=== PATIENT | male | born 1945 | race Caucasian/White ===

== ENCOUNTER 2023-09-29 09:20 | Emergency (ER) | payer OTHER, SELFPAY ==
[2023-09-29 09:25] VITALS: BP 151/91
--- NOTE | 2023-09-29 10:52 | ED.GENMED ---
History of Present Illness
General
Chief Complaint: Eye Problems
Source: patient
Exam Limitations: none
Time Seen by Provider: 09/29/23 09:48
History of Present Illness
History of Present Illness:
77-year-old male presents with foreign body sensation in left eye since the past 4 to 5 days. He denies any vision change. He denies discomfort or light sensitivity. He states Visine seems to help his symptoms. He does not wear glasses or
contacts. No other complaints at this time
Past History
Past History
ED Past Medical History: Other (History of prostatitis infection with bacteremia, irritable bowel syndrome)
ED Past Surgical History: Other (Tonsillectomy as a child, dislocated profusion)
Social History
Tobacco: Former smoker
Alcohol: Daily (One beer a day)
Personal:
Living: with family
Employment: Employed
Phy Exam
Physical Exam
Physical Exam:
General: Well-appearing male no acute respiratory distress
HEENT: Left eye exam with fluorescein stain and slit lamp. There is no scleral injection. The lids were everted there is no foreign body. Just lateral to the iris overlying the sclera there is a small punctate area of hemorrhage. This could be a
site of a prior foreign body. Anterior chamber is clear pupil is round and reactive
Skin: No erythema or rash
Course
Orders/Labs/Results
Orders:
Orders
09/29/23 10:39
Gentamicin [Genoptic 0.3% Eye Drops] See Dose Instructions OPHTH NOW STA
09/29/23 10:40
Fluorescein Sodium [Ful-Katheryn] 3 mg .ROUTE .STK-MED ONE
09/29/23 10:41
Purified Water Eye Wash [Dacriose Eye Wash Solution] 120 ml .ROUTE .STK-MED ONE
Vital Signs
Initial and Last Documented VS:
Initial Vital Signs
Temp Pulse Resp BP Pulse Ox
98.2 F 67 16 151/91 98
09/29/23 09:25 09/29/23 09:25 09/29/23 09:25 09/29/23 09:25 09/29/23 09:25
Last Documented Vital Signs
Temp Pulse Resp BP Pulse Ox
98.2 F 67 16 151/91 98
09/29/23 09:25 09/29/23 09:25 09/29/23 09:25 09/29/23 09:25 09/29/23 09:25
MDM/Problems Addressed
Differential Diagnosis Includes:
Foreign body sensation left eye. The eye was examined with slit lamp. There is no visible retained foreign body however there is a small area that could be a prior foreign body. Will start on gentamicin drops and recommend follow-up with
ophthalmology
*Critical Care Note
Total Time (30-74mins, 75-104mins- exclusive of procedures): Not Applicable
ED Attending Note
-
Portions of this chart may have been created with voice recognition software.� Occasional wrong word or��sound alike� substitutions may have occurred due to the inherent limitations of voice recognition software.
Discharge Plan
Departure
Patient Disposition: Home (Routine Discharge)
Date of Disposition: 09/29/23
Time of Disposition: 10:55
Patient with high blood pressure during this ER visit?: No
Discharge Problem:
Foreign body sensation, left eye
Instructions: Foreign Body in Eye (DC)
Prescriptions:
No Action
ascorbic acid (vitamin C) 1,000 MG tablet extended release
1,000 mg PO DAILY
lysine 1,000 MG tablet
1,000 mg PO DAILY
omega-3 fatty acids-fish oil [Fish Oil] 1,000 MG capsule
1 cap PO
cholecalciferol (vitamin D3) 2,000 UNIT tablet
2,000 unit PO
zinc ooi-kdezqt-ebx palm-gnsg 1 EACH capsule
2 ea PO DAILY
Multivitamin
1 tab PO DAILY
levofloxacin 500 MG tablet
500 mg PO DAILY Qty: 10 0RF
Referrals:
Rojas Martin MD [Active] -
Celina Rose DO [Family Provider] -
Activity Restrictions/Additional Instructions:
Use 1 drop left eye every 4 hours. Follow-up with eye doctor for further evaluation. Return if worse otherwise
Discharge Date and Time
Print Language: BOTSWANAN
[2023-09-29] MEDS: GENOPTIC 0.3% EYE DROPS 1 DROP OPHTH (10:57)
== END 2023-09-29 11:10 | disposition home or self-care (01) ==
LOC: EMR 09:20
PROVIDERS: EMERGENCY PHYSICIAN Emergency Medicine; FAMILY PHYSICIAN Family Medicine
DX: H57.8A2 Foreign body sensation, left eye (principal); N41.9 Inflammatory disease of prostate, unspecified; K58.9 Irritable bowel syndrome, unspecified; Z87.891 Personal history of nicotine dependence
CPT/HCPCS: 99282

== ENCOUNTER 2023-12-30 16:43 | Emergency (ER) | payer OTHER, SELFPAY ==
[2023-12-30 17:04] VITALS: BP 157/100
[2023-12-30 17:28] LABS: % Basophils 0.6 % (0-2); % Eosinophils 1.9 % (0-6); % Immature Granulocytes 0.3 % (0-0.5); % Lymphocytes 6.2 % (20.5-51.1); % Monocytes 9.6 % (1.7-9.3); % Neutrophils 81.4 % (42.2-75.2); Absolute Basophils 0.1 10^3/uL (0-0.2); Absolute Eosinophils 0.3 10^3/uL (0-0.7); Absolute Lymphocytes 0.8 10^3/uL (1.2-3.4); Absolute Monocytes 1.3 10^3/uL (0.1-0.6); Absolute Neutrophils 10.9 10^3/uL (1.4-6.5); Hematocrit 46.7 % (39.0-52.0); Hemoglobin 16.3 g/dL (13.0-18.0); Mean Corp Hgb Conc. 34.9 g/dL (33.0-37.0); Mean Corpuscular Hgb 29.7 pg (27.0-31.0); Mean Corpuscular Volume 85.1 fL (80.0-94.0); Mean Platelet Volume 10.1 fL (7.4-10.4); Nucleated Red Blood Cells % 0 % (-); Platelet Count 363 10^3/uL (130-400); Red Blood Cell Count 5.49 10^6/uL (4.70-6.10); Red Cell Dist. Width 14.8 % (11.5-14.5); White Blood Cell Count 13.4 10^3/uL (4.8-10.8)
[2023-12-30 17:45] LABS: ALT (SGPT) 28 U/L (0-50); AST (SGOT) 41 U/L (17-59); Albumin 4.5 g/dl (3.5-5.0); Alkaline Phosphatase 54 U/L (38-126); Blood Urea Nitrogen 18 mg/dl (9-20); Calcium 9.7 mg/dl (8.4-10.2); Carbon Dioxide 26 mmol/L (22-30); Chloride 102 mmol/L (98-107); Glucose 116 mg/dl (70-99); Potassium 4.5 mmol/L (3.5-5.1); Sodium 141 mmol/L (135-145); Total Protein 7.4 g/dl (6.3-8.2); eGFR > 60.00
[2023-12-30 17:46] LABS: COVID-19 Antigen Negative (Negative)
[2023-12-30 17:52] LABS: Troponin I < 0.012 ng/ml
[2023-12-30 20:43] VITALS: BP 179/96
[2023-12-30] MEDS: DECADRON 10 MG PO (20:43)
[2023-12-30] MEDS: DUONEB 3 ML INH (20:44)
[2023-12-30 21:09] LABS: D-Dimer 2.41 ug/mlFEU (0.00-0.50)
[2023-12-30 22:37] VITALS: BP 140/82
[2023-12-30 23:00] VITALS: BP 168/94
--- NOTE | 2023-12-30 23:14 | ED.GENMED ---
History of Present Illness
General
Chief Complaint: Cough
Source: patient
Exam Limitations: none
Time Seen by Provider: 12/30/23 19:59
Nursing documentation reviewed up to this point in time: agreed with
History of Present Illness
History of Present Illness:
Patient to ED with complaint of sorethroat and cough. States he flew back from [place] on Friday. His symptoms started friday PM, Brought to ED by spouse for eval
Past History
Past History
ED Past Medical History: COPD, Hypercholesterolemia and Other (History of prostatitis infection with bacteremia, irritable bowel syndrome)
ED Past Surgical History: Other (Tonsillectomy as a child, dislocated profusion)
Social History
Tobacco: Former smoker
Alcohol: Daily (One beer a day)
Personal:
Living: with family
Employment: Employed
Review of Systems
Review of Systems
Allergies reviewed?: Yes
All Other Systems: ROS reviewed and negative except as documented in HPI and ROS
Constitutional: Reports no symptoms
EENT: Reports sore throat
Respiratory: Reports cough
Cardiac: Reports no symptoms
ABD/GI: Reports no symptoms
: Reports no symptoms
Musculoskeletal: Reports no symptoms
Skin: Reports no symptoms
Neurological: Reports no symptoms
Psychiatric: Reports no symptoms
Phy Exam
General Physical Exam
General Presentation: well appearing and no apparent distress
General age: appears stated age
General Skin: warm and dry
General Habitus: normal
General Mental: alert
Cardiovascular Exam
Cardiovascular Exam: regular rate/rhythm and no edema
Pulmonary Exam
Pulmonary Exam: chest non tender and decreased breath sounds
Cough: non productive cough
Gastrointestinal Exam
Gastrointestinal Exam: normal bowel sounds, non tender and soft
Musculoskeletal Exam
Musculoskeletal Exam: full ROM and neuro vasc intact
Skin Exam
Skin Exam: normal color, warm/dry and no rash
Psychiatric Exam
Psychiatric Exam: normal mood/affect
Course
Orders/Labs/Results
Orders:
Orders
12/30/23 17:11
EKG [Electrocardiogram (*1)] Urgent
Reason for Study: Shortness of Breath
EKG- Treatment ONCE
12/30/23 17:17
CXR2 [CR Chest - 2 Views ] Urgent
Comment:
Reason For Exam: sob/cough
12/30/23 17:20
CMP [Comprehensive Metabolic Panel] Urgent
COVID-19 Antigen Urgent
Source: Nasal Swab
Complete Blood Count/With Diff Urgent
Lyme Progressive Urgent
Troponin I Urgent
Influenza A+B Rapid Molecular Urgent
CARLEEN Source: Nasal Swab
Specimen Description:
12/30/23 20:20
Ipratropium/Albuterol Sulfate [Duoneb] 3 ml INH R NOW STA
12/30/23 20:32
Dexamethasone Pf [Decadron] 10 mg PO NOW STA
12/30/23 20:49
D-Dimer Urgent
12/30/23 21:14
CT Chest Pe Study Urgent
Comment:
Reason For Exam: SOB, elevated Ddimer
Abnormal Lab Results
12/30/23 12/30/23
17:20 20:49
WBC 13.4 H 10^3/uL
(4.8-10.8)
RDW 14.8 H %
(11.5-14.5)
Absolute Neuts (auto) 10.9 H 10^3/uL
(1.4-6.5)
Absolute Lymphs (auto) 0.8 L 10^3/uL
(1.2-3.4)
Absolute Monos (auto) 1.3 H 10^3/uL
(0.1-0.6)
Neutrophils % 81.4 H %
(42.2-75.2)
Lymphocytes % 6.2 L %
(20.5-51.1)
Monocytes % 9.6 H %
(1.7-9.3)
D-Dimer 2.41 H ug/mlFEU
(0.00-0.50)
Glucose 116 H mg/dl
(70-99)
12/30/23 17:20
12/30/23 17:20
Vital Signs
Initial and Last Documented VS:
Initial Vital Signs
Temp Pulse Resp BP Pulse Ox
98.7 F 94 18 157/100 94
12/30/23 17:04 12/30/23 17:04 12/30/23 17:04 12/30/23 17:04 12/30/23 17:04
Last Documented Vital Signs
Temp Pulse Resp BP Pulse Ox
98.7 F 96 21 168/94 92
12/30/23 17:04 12/30/23 23:00 12/30/23 23:00 12/30/23 23:00 12/30/23 23:00
MDM/Problems Addressed
Differential Diagnosis Includes:
Patient to ED wt complaint of ST, cough. Symptoms started this weekend after return from [place]. No fever/chills. Labs reviewed. Elevated troponin noted. No history of PE. CT reviewed, no PE, no pneumonia. Pulse ox stable at 95%. Will
continue prednisone taper at home, add albuterol MDI and close follow up with PCP and pulmonollogy. Differential includes but not limited to pneumonia, PE, viral infection.
Chronic conditions affecting care: COPD
Acute Exacerbation and/or Progression of Chronic Illness: COPD
*Radiology
Radiology exam reviewed: radiology read reviewed
*Pulse Oximetry
Patient hypoxic: no
*Critical Care Note
Total Time (30-74mins, 75-104mins- exclusive of procedures): Not Applicable
ED Attending Note
-
Portions of this chart may have been created with voice recognition software.� Occasional wrong word or��sound alike� substitutions may have occurred due to the inherent limitations of voice recognition software.
Discharge Plan
Departure
Patient Disposition: Home (Routine Discharge)
Date of Disposition: 12/30/23
Time of Disposition: 22:51
Patient with high blood pressure during this ER visit?: No
Condition: Good
Discharge Problem:
Acute bronchitis
Instructions: Acute Bronchitis, Adult (DC), Cough, Adult (DC)
Prescriptions:
New
prednisone 10 mg Tablet
See Rx Instructions .ROUTE .COMPLEX Qty: 45 0RF
Rx Instructions:
Take By Mouth:
50 mg daily x3 days, 40 mg daily x3 days,
30 mg daily x3 days, 20 mg daily x3 days,
10 mg daily x3 days
albuterol sulfate 90 mcg/actuation HFA aerosol inhaler
2 puff inhalation QID PRN (Reason: shortness of breath or wheezing) Qty: 8.5 0RF
No Action
ascorbic acid (vitamin C) 1,000 MG tablet extended release
1,000 mg PO DAILY
lysine 1,000 MG tablet
1,000 mg PO DAILY
omega-3 fatty acids-fish oil [Fish Oil] 1,000 MG capsule
1 cap PO
cholecalciferol (vitamin D3) 2,000 UNIT tablet
2,000 unit PO
zinc lsj-pzareo-piv palm-gnsg 1 EACH capsule
2 ea PO DAILY
Multivitamin
1 tab PO DAILY
levofloxacin 500 MG tablet
500 mg PO DAILY Qty: 10 0RF
Referrals:
Celina Rose DO [Family Provider] -
Activity Restrictions/Additional Instructions:
Return to the emergency department immediately for any changes in/worsening of your symptoms
Interventions
Interventions:
*Risk Screen - Suicide Last Done: 12/30/23 17:04
*General Assessment Last Done: 12/30/23 23:16
*Neglect/Abuse Screening Last Done: 12/30/23 17:04
ED- Fall Risk Assessment Last Done: 12/30/23 23:16
*ED COVID-19 Vaccine History Last Done: 12/30/23 17:04
*Nursing Disposition Last Done: 12/30/23 23:16
ED- Pulmonary Assessment Last Done: 12/30/23 20:51
Discharge Date and Time
Discharge Date/Time: 12/30/23 23:17
Print Language: YAKUT
[2024-01-02 14:22] LABS: Lyme Antibody Screen, EIA Negative (Negative)
== END 2023-12-30 23:17 | disposition home or self-care (01) ==
LOC: EMR 16:43
PROVIDERS: Nurse Practitioner; Student in an Organized Health Care Education/Training Program; EMERGENCY PHYSICIAN Emergency Medicine; FAMILY PHYSICIAN Family Medicine
DX: J20.9 Acute bronchitis, unspecified (principal); Z87.891 Personal history of nicotine dependence; J44.0 Chronic obstructive pulmonary disease with (acute) lower respiratory infection; E78.00 Pure hypercholesterolemia, unspecified; K58.9 Irritable bowel syndrome, unspecified
CPT/HCPCS: 99284; 94640; 71046; 71275; 80053; 84484; 85025; 85379; 86618; 87502; 87811; 93005; Q9967

== ENCOUNTER 2024-01-04 10:58 | Emergency (ER) | payer OTHER, SELFPAY ==
[2024-01-04 11:03] VITALS: BP 168/84
[2024-01-04 11:20] LABS: % Basophils 0.3 % (0-2); % Eosinophils 0.3 % (0-6); % Immature Granulocytes 0.6 % (0-0.5); % Monocytes 8.5 % (1.7-9.3); % Neutrophils 84.3 % (42.2-75.2); Absolute Basophils 0.1 10^3/uL (0-0.2); Absolute Eosinophils 0.1 10^3/uL (0-0.7); Absolute Immature Granulocytes 0.1 10^3/uL (0-0.05); Absolute Lymphocytes 1.4 10^3/uL (1.2-3.4); Absolute Neutrophils 19.9 10^3/uL (1.4-6.5); Hematocrit 42.3 % (39.0-52.0); Mean Corp Hgb Conc. 35.5 g/dL (33.0-37.0); Mean Corpuscular Hgb 29.8 pg (27.0-31.0); Mean Corpuscular Volume 83.9 fL (80.0-94.0); Mean Platelet Volume 9.8 fL (7.4-10.4); Nucleated Red Blood Cells % 0 % (-); Platelet Count 422 10^3/uL (130-400); Red Blood Cell Count 5.04 10^6/uL (4.70-6.10); Red Cell Dist. Width 15.1 % (11.5-14.5); White Blood Cell Count 23.6 10^3/uL (4.8-10.8)
[2024-01-04 11:39] LABS: ALT (SGPT) 29 U/L (0-50); AST (SGOT) 25 U/L (17-59); Albumin 3.8 g/dl (3.5-5.0); Alkaline Phosphatase 44 U/L (38-126); Blood Urea Nitrogen 24 mg/dl (9-20); Calcium 9.6 mg/dl (8.4-10.2); Carbon Dioxide 24 mmol/L (22-30); Chloride 103 mmol/L (98-107); Glucose 116 mg/dl (70-99); Potassium 4.1 mmol/L (3.5-5.1); Sodium 137 mmol/L (135-145); Total Bilirubin 1.5 mg/dl (0.2-1.3); Total Protein 6.3 g/dl (6.3-8.2); eGFR > 60.00
[2024-01-04 11:49] LABS: Troponin I < 0.012 ng/ml
--- NOTE | 2024-01-04 12:09 | ED.GENMED ---
History of Present Illness
General
Chief Complaint: Breathing Problem
Source: patient
Exam Limitations: none
Time Seen by Provider: 01/04/24 12:08
Nursing documentation reviewed up to this point in time: agreed with
History of Present Illness
History of Present Illness:
78 yo male w h/oTIA, PNA, COPD, HLD, IBS, prostatitis w bacteremia, treated here 12/29 for acute bronchitis with Prednisone taper, Albuterol INH, after flight back from [place] the previous week (neg comprehensive w/u including d dimer, chest PE
study, Lyme, CXR, EKG, etc).
Presents for SOB. States he was feeling better, taking the prednisone, using his inhaler, until last 5 p.m when SOB got worse. He has developed a productive cough with green phlegm. Denies fever/chills. Denies CP, abdominal pain, N/V/D/C.
Has appointment with his Resident Assistant Dr. Conley in 2 days.
Past History
Past History
ED Past Medical History: COPD, Hypercholesterolemia and Other (History of prostatitis infection with bacteremia, irritable bowel syndrome)
ED Past Surgical History: Other (Tonsillectomy as a child, dislocated profusion)
Social History
Tobacco: Former smoker (quit 25 yrs ago)
Alcohol: Daily (One beer a day)
Personal:
Living: with family
Employment: Employed
Review of Systems
Review of Systems
Allergies reviewed?: Yes
All Other Systems: ROS reviewed and negative except as documented in HPI and ROS
Constitutional: Reports fatigue; Denies fever
EENT: Denies sore throat or runny nose
Respiratory: Reports cough and trouble breathing; Denies hemoptysis
Cardiac: Denies chest pain or diaphoresis
ABD/GI: Denies abdominal pain, nausea, vomiting, diarrhea or constipated
: Denies dysuria or difficulty voiding
Musculoskeletal: Reports no symptoms
Skin: Reports no symptoms
Neurological: Reports no symptoms
Phy Exam
Physical Exam
Physical Exam:
GENERAL: No acute distress. A&Ox3.
CONSTITUTIONAL: Afebrile.
EYES: cler, conjunctivae normal
ENMT: moist mucus membranes, Pharynx nl
RESPIRATORY: Regular respirations, mildly labored, lungs with scattered wheezes throughout. Coarse junky cough
CARDIOVASCULAR: Regular rate and rhythm, no murmurs, no rubs.
GI: Soft, nontender, normal BS
MUSCULOSKELETAL: Moves with ease. Well perfused.
SKIN: Warm, dry, pink
PSYCH: Normal mood and affect. Well kept, interactive and appropriate
NEUROLOGIC: Awake, alert and oriented. No focal neurological deficits
Scores
Heart Failure Risk
Heart Failure Risk Score: Not Applicable
Course
Orders/Labs/Results
Orders:
Orders
01/04/24 10:58
Electrocardiogram (*1) Urgent
Reason for Study: Chest Pain
01/04/24 10:59
EKG- Treatment ONCE
01/04/24 11:08
Complete Blood Count/With Diff Urgent
Comprehensive Metabolic Panel Urgent
Troponin I Urgent
01/04/24 12:22
Ipratropium/Albuterol Sulfate [Duoneb] 3 ml INH R NOW STA
01/04/24 13:09
Doxycycline [Vibramycin] 100 mg PO NOW STA
Abnormal Lab Results
01/04/24
11:08
WBC 23.6 H 10^3/uL
(4.8-10.8)
RDW 15.1 H %
(11.5-14.5)
Plt Count 422 H 10^3/uL
(130-400)
Abs Immat Gran (auto) 0.1 H 10^3/uL
(0-0.05)
Absolute Neuts (auto) 19.9 H 10^3/uL
(1.4-6.5)
Absolute Monos (auto) 2.0 H 10^3/uL
(0.1-0.6)
Immature Gran % 0.6 H %
(0-0.5)
Neutrophils % 84.3 H %
(42.2-75.2)
Lymphocytes % 6.0 L %
(20.5-51.1)
BUN 24 H mg/dl
(9-20)
Glucose 116 H mg/dl
(70-99)
Total Bilirubin 1.5 H mg/dl
(0.2-1.3)
01/04/24 11:08
01/04/24 11:08
Vital Signs
Initial and Last Documented VS:
Initial Vital Signs
Temp Pulse Resp BP Pulse Ox
98.6 F 90 20 168/84 93
01/04/24 11:03 01/04/24 11:03 01/04/24 11:03 01/04/24 11:03 01/04/24 11:03
Last Documented Vital Signs
Temp Pulse Resp BP Pulse Ox
98.6 F 84 20 148/70 94
01/04/24 11:03 01/04/24 13:30 01/04/24 13:30 01/04/24 13:08 01/04/24 12:36
MDM/Problems Addressed
Differential Diagnosis Includes:
Exacerbation COPD, PNA, Bronchitis
MDM/Problems Addressed:
78 yo male w h/oTIA, PNA, COPD, HLD, IBS, prostatitis w bacteremia, treated here 12/29 for acute bronchitis with Prednisone taper, Albuterol INH, after flight back from [place] the previous week (neg comprehensive w/u including d dimer, chest PE
study, Lyme, CXR, EKG, etc).
Presents for SOB. States he was feeling better, taking the prednisone, using his inhaler, until last 5 p.m when SOB got worse. He has developed a productive cough with green phlegm. Denies fever/chills. Denies CP, abdominal pain, N/V/D/C.
Has appointment with his Resident Assistant Dr. Conley in 2 days.
Mild labored breathing, wheezing scattered throughout, afebrile, labs unremarkable save for elevated WBC (due to steroid use), do not suspect PNA, no need to repeat CXR
Hx COPD, failing out pt care, will add Doxycycline and sent home with nebulizer machine, rx for Duonebs sent to his pharmacy.
He and are comfortable with this plan
Will see pulmonology in 2 days
Return instructions discussed.
*EKG
EKG Intrepretation Date: 01/04/24
Interpretation: normal
Rate: normal
Rhythm: sinus and sinus arrhythmia
Edmonds: normal axis
Interval: normal interval
QRS Pattern: normal QRS
Ischemia: no ischemia
*Critical Care Note
Total Time (30-74mins, 75-104mins- exclusive of procedures): Not Applicable
ED Attending Note
-
Portions of this chart may have been created with voice recognition software.� Occasional wrong word or��sound alike� substitutions may have occurred due to the inherent limitations of voice recognition software.
Discharge Plan
Departure
Patient Disposition: Home (Routine Discharge)
Date of Disposition: 01/04/24
Time of Disposition: 13:10
Patient with high blood pressure during this ER visit?: Yes
Condition: Fair
Discharge Problem:
COPD exacerbation
Instructions: Exacerbation of COPD (DC)
Prescriptions:
New
ipratropium-albuterol 0.5 mg-3 mg(2.5 mg base)/3 mL solution for nebulization
3 ml inhalation QID PRN (Reason: shortness of breath or wheezing) Qty: 90 0RF
doxycycline hyclate 100 mg capsule
100 mg PO BID Qty: 14 0RF
No Action
ascorbic acid (vitamin C) 1,000 MG tablet extended release
1,000 mg PO DAILY
lysine 1,000 MG tablet
1,000 mg PO DAILY
omega-3 fatty acids-fish oil [Fish Oil] 1,000 MG capsule
1 cap PO
cholecalciferol (vitamin D3) 2,000 UNIT tablet
2,000 unit PO
zinc ddu-auoygm-mzo palm-gnsg 1 EACH capsule
2 ea PO DAILY
Multivitamin
1 tab PO DAILY
levofloxacin 500 MG tablet
500 mg PO DAILY Qty: 10 0RF
prednisone 10 mg Tablet
See Rx Instructions .ROUTE .COMPLEX Qty: 45 0RF
Rx Instructions:
Take By Mouth:
50 mg daily x3 days, 40 mg daily x3 days,
30 mg daily x3 days, 20 mg daily x3 days,
10 mg daily x3 days
albuterol sulfate 90 mcg/actuation HFA aerosol inhaler
2 puff inhalation QID PRN (Reason: shortness of breath or wheezing) Qty: 8.5 0RF
Referrals:
Akbar Trinh MD [Active] - Keep scheduled appt
Celina Rose DO [Family Provider] -
Activity Restrictions/Additional Instructions:
As we discussed, I sent a prescription to your pharmacy for albuterol/ipratropium to use with your nebulization machine every 4 hours as needed for shortness of breath or wheezing.
I also sent a prescription for the antibiotic doxycycline to take twice a day for 7 days
Keep your appointment with your pulmonary doctor in 2 days.
You may return here at anytime for worsening shortness of breath despite the medications, fever, or feeling sicker in any way.
Interventions
Interventions:
*Risk Screen - Suicide Last Done: 01/04/24 11:03
*General Assessment Last Done: 01/04/24 11:03
*Neglect/Abuse Screening Last Done: 01/04/24 11:03
ED- Fall Risk Assessment Last Done: 01/04/24 11:52
*ED COVID-19 Vaccine History Last Done: 01/04/24 11:03
*Nursing Disposition Last Done: 01/04/24 13:53
ED- Cardiac Assessment Last Done: 01/04/24 13:47
ED- Pulmonary Assessment Last Done: 01/04/24 13:47
Discharge Date and Time
Discharge Date/Time: 01/04/24 14:01
Print Language: KOSOVAN
[2024-01-04 12:33] VITALS: BMI 23.3
[2024-01-04] MEDS: DUONEB 3 ML INH (12:33)
[2024-01-04 12:36] VITALS: BP 155/68
[2024-01-04 13:08] VITALS: BP 148/70
[2024-01-04] MEDS: VIBRAMYCIN 100 MG PO (13:36)
== END 2024-01-04 14:01 | disposition home or self-care (01) ==
LOC: EMR 10:58
PROVIDERS: EMERGENCY PHYSICIAN Emergency Medicine; FAMILY PHYSICIAN Family Medicine
DX: J44.1 Chronic obstructive pulmonary disease with (acute) exacerbation (principal); R03.0 Elevated blood-pressure reading, without diagnosis of hypertension; E78.00 Pure hypercholesterolemia, unspecified; K58.9 Irritable bowel syndrome, unspecified; Z87.891 Personal history of nicotine dependence; Z87.01 Personal history of pneumonia (recurrent); Z91.030 Bee allergy status
CPT/HCPCS: 99283; 94640; 80053; 84484; 85025; 93005